=== PATIENT | male | born 1960 | race Caucasian/White ===

== ENCOUNTER → 2020-10-29 | Outpatient (CLI) | payer OTHER | LOC: KOH-I 09:02 | DX: R10.813 Right lower quadrant abdominal tenderness (principal); K76.0 Fatty (change of) liver, not elsewhere classified; N28.1 Cyst of kidney, acquired | CPT/HCPCS: 76700 ==

== ENCOUNTER → 2020-10-29 | Outpatient (CLI) | payer OTHER ==
[2020-10-29 11:20] LABS: HEMOGLOBIN 16.6 gm/dl (14.0-17.5); RED BLOOD COUNT 5.16 M/UL (4.20-5.50); WHITE BLOOD COUNT 6.3 K/UL (4.5-11.0)
[2020-10-29 11:56] LABS: BUN/CREATININE RATIO 18 (0-10)
[2020-10-30 12:10] LABS: C-PEPTIDE, SERUM 3.3 ng/mL (1.1-4.4)
[2020-10-30 13:10] LABS: RHEUMATOID ARTHRITIS FACTOR <10.0 IU/mL (0.0-13.9)
[2020-10-31 07:11] LABS: VITAMIN D, 25-HYDROXY 14.2 ng/mL (30.0-100.0)
== END ==
LOC: LAB 10:10
PROVIDERS: Family Medicine
DX: Z13.828 Encounter for screening for other musculoskeletal disorder (principal); E11.9 Type 2 diabetes mellitus without complications; E55.9 Vitamin D deficiency, unspecified; Z13.220 Encounter for screening for lipoid disorders; Z13.89 Encounter for screening for other disorder; Z12.5 Encounter for screening for malignant neoplasm of prostate
CPT/HCPCS: 36415; 80053; 80061; 82043; 83036; 84153; 84439; 84443; 84481; 84550; 84681; 85027; 85652; 86038; 86431